=== PATIENT | male | born 1990 | race Caucasian/White ===

== ENCOUNTER 2021-09-02 00:24 | Emergency (ER) | payer MEDICAID ==
[~2021-09-02] VITALS: Ht 188 cm; Wt 108.9 kg
[2021-09-02 00:25] VITALS: BP_SYST 140
[2021-09-02] MEDS ORDERED: NACL 0.9% 1,000 ML IV ONE (00:45)
[2021-09-02 02:27] VITALS: BP_SYST 140
[2021-09-02 02:43] LABS: POTASSIUM 4.1 mmol/L (3.5-5.1)
[2021-09-02 02:44] LABS: CALCIUM 8.5 mg/dL (8.4-11.0)
[2021-09-02 02:45] LABS: CREATININE 0.96 mg/dL (0.55-1.30); TOTAL BILIRUBIN 0.4 mg/dL (0.0-1.0)
[2021-09-02 02:46] LABS: ALBUMIN 4.3 g/dL (3.4-4.8)
[2021-09-02 02:47] LABS: BASOPHILS % (AUTO) 0.2 % (0.0-2.0); EOSINOPHILS # (AUTO) 0.1 K/uL (0.0-0.4); EOSINOPHILS % (AUTO) 1.8 % (0.0-4.0); HEMATOCRIT 45.2 % (36-54); HEMOGLOBIN 14.9 g/dL (14.0-18.0); LYMPHOCYTES # (AUTO) 1.2 K/uL (1.0-5.5); LYMPHOCYTES % (AUTO) 18.5 % (20.5-51.5); MEAN CORPUSCULAR HEMOGLOBIN 30 pg (27-31); MEAN CORPUSCULAR HGB CONC 33 % (32-36); MEAN CORPUSCULAR VOLUME 90 fL (79.0-98.0); MONOCYTES # (AUTO) 0.6 K/uL (0.0-1.0); MONOCYTES % (AUTO) 8.5 % (1.7-9.3); NEUTROPHILS # (AUTO) 4.8 K/uL (1.8-7.7); PLATELET COUNT (AUTO) 217 K/uL (130-430); RED BLOOD CELL COUNT(AUTO) 5.02 MIL/uL (4.2-6.2); RED CELL DISTRIBUTION WIDTH 13.9 % (9.0-15.0); WHITE BLOOD COUNT (AUTO) 6.8 K/uL (4.8-10.8)
== END 2021-09-02 02:25 | disposition home or self-care (01) ==
LOC: SED 00:24
DX: T40.411A Poisoning by fentanyl or fentanyl analogs, accidental (unintentional), initial encounter (principal); J45.909 Unspecified asthma, uncomplicated; Z88.0 Allergy status to penicillin; Z79.899 Other long term (current) drug therapy; Y92.89 Other specified places as the place of occurrence of the external cause
CPT/HCPCS: 36415; 80053; 84484; 85025; 93005; 96360; 99284; G0482; J7030